=== PATIENT | female | born 1965 | race Caucasian/White ===

== ENCOUNTER 2017-03-01 11:44 | Day surgery (SDC) | payer BC ==
[~2017-03-01] VITALS: Ht 165.1 cm; Wt 105.2 kg
[~2017-03-01 11:44] MED LIST: AMBIEN5 MG PO; AMLODIPINE5 MG PO; HYDROCHLOROT12.5 MG PO; LEVOTHYROXIN75 MCG PO; METFORMIN500 MG PO; METHOCARBAMOL500 MG PO; MOTRIN800 MG PO; PAXIL30 MG PO; TRAZODONE50 MG PO; XANAX0.5 MG PO
[2017-03-01 15:16] VITALS: BP 111/53
== END 2017-03-01 15:10 | disposition home or self-care (01) | DRG 392 ==
LOC: ENDO 11:44
PROVIDERS: ATTEND Internal Medicine Gastroenterology
PROC: 0DJD8ZZ Inspection of Lower Intestinal Tract, Via Natural or Artificial Opening Endoscopic (ICD-10-PCS; principal; 2017-03-01)
DX: K59.00 Constipation, unspecified (principal); E03.9 Hypothyroidism, unspecified; K57.30 Diverticulosis of large intestine without perforation or abscess without bleeding; K64.4 Residual hemorrhoidal skin tags; K64.8 Other hemorrhoids; K21.9 Gastro-esophageal reflux disease without esophagitis; E11.9 Type 2 diabetes mellitus without complications; I10 Essential (primary) hypertension; Z87.891 Personal history of nicotine dependence

== ENCOUNTER 2018-02-24 11:51 | Observation (INO) | payer BC ==
[~2018-02-24] VITALS: Ht 165.1 cm; Wt 105.0 kg
[2018-02-24 13:35] LABS: HEMATOCRIT 35.8 % (37.0-47.0); HEMOGLOBIN 11.2 g/dl (12.0-16.0); IMMATURE GRANULOCYTES 0.4 % (0.0-5.0); MEAN CELL VOLUME 83.3 fL CALC (80.0-100.0); MEAN CORPUSCULAR HGB CONC 31.3 g/L CALC (32.0-36.0); NEUT# 8.18 thou/uL (2.00-7.15); RED BLOOD COUNT 4.3 mill/uL (4.20-5.60); RED CELL DISTRI WIDTH 13.5 % (11.5-15.5)
[2018-02-24 13:49] LABS: ANION GAP 11 (6-22 (CALC)); BUN 9 mg/dL (7-17); BUN/CREATININE RATIO 12 (12-20 (CALC)); CARBON DIOXIDE 25 mmol/l (22-30); CHLORIDE 107 mmol/l (95-108); CREATININE 0.8 mg/dL (0.5-1.0); GFR > 60 ML/MIN (>=60 (CALC)); GFR FOR AFR.AMER. > 60 ML/MIN (>=60 (CALC)); POTASSIUM 3.4 mmol/l (3.5-5.1); SODIUM 140 mmol/l (137-146)
[2018-02-24 16:18] VITALS: BP 150/69
[2018-02-24 17:51] LABS: CHOLESTEROL HDL RATIO 4.2 (<4.4 (CALC))
[2018-02-24 20:00] VITALS: BP 129/77
[2018-02-24 23:14] LABS: URINE BILIRUBIN - DIPSTICK NEGATIVE (NEGATIVE); URINE BLOOD DIPSTICK NEGATIVE (NEGATIVE); URINE COLOR YELLOW; URINE GLUCOSE - DIPSTICK NEGATIVE (NEGATIVE); URINE KETONE NEGATIVE (NEGATIVE); URINE LEUK ESTERASE NEGATIVE (Negative); URINE NITRITE - DIPSTICK NEGATIVE (Negative); URINE PH 7.5 (4.5-8.0); URINE PROTEIN - DIPSTICK NEGATIVE (NEG-TRACE); URINE UROBILINOGEN - DIPSTICK 0.2 E.U./dL (0.2)
[2018-02-24 23:16] LABS: URINE CLARITY SL CLOUDY
[2018-02-25] VITALS: BP 110/73
[2018-02-25 05:45] VITALS: BP 91/59
[2018-02-25 06:10] LABS: ALBUMIN 3.8 g/dL (3.2-5.0); ALKALINE PHOSPHATASE 79 u/l (38-126); BILIRUBIN, TOTAL 0.5 mg/dL (0.0-1.4); BUN 13 mg/dL (7-17); BUN/CREATININE RATIO 14 (12-20 (CALC)); CARBON DIOXIDE 28 mmol/l (22-30); CHLORIDE 109 mmol/l (95-108); CREATININE 0.9 mg/dL (0.5-1.0); GFR > 60 ML/MIN (>=60 (CALC)); GFR FOR AFR.AMER. > 60 ML/MIN (>=60 (CALC)); HEMATOCRIT 36.7 % (37.0-47.0); HEMOGLOBIN 11.5 g/dl (12.0-16.0); IMMATURE GRANULOCYTES 0.9 % (0.0-5.0); MAGNESIUM 1.9 mg/dL (1.6-2.3); MEAN CORPUSCULAR HGB 26.3 pG CALC (26.0-32.0); MEAN CORPUSCULAR HGB CONC 31.3 g/L CALC (32.0-36.0); NEUT# 6.1 thou/uL (2.00-7.15); RED BLOOD COUNT 4.37 mill/uL (4.20-5.60); RED CELL DISTRI WIDTH 13.6 % (11.5-15.5); SGOT/AST 23 u/l (14-36); SODIUM 144 mmol/l (137-146); TOTAL PROTEIN 7.1 g/dL (6.3-8.2)
[2018-02-25 06:12] LABS: ANION GAP 12 (6-22 (CALC))
[2018-02-25 06:13] LABS: POTASSIUM 4.5 mmol/l (3.5-5.1)
[2018-02-25 08:19] VITALS: BP 116/58
[2018-02-25 11:00] VITALS: BP 126/68
== END 2018-02-25 14:43 | disposition home or self-care (01) | DRG 313 ==
LOC: ED 11:51 → ED-I 14:43 → ED 15:11 → MS2 15:12
PROVIDERS: Family Medicine; Nurse Practitioner Family; ADMIT Internal Medicine Nephrology; ATTEND Internal Medicine Nephrology
DX: R07.89 Other chest pain (principal); I10 Essential (primary) hypertension; E11.9 Type 2 diabetes mellitus without complications; F41.1 Generalized anxiety disorder; F32.9 Major depressive disorder, single episode, unspecified; E78.5 Hyperlipidemia, unspecified; G47.33 Obstructive sleep apnea (adult) (pediatric); E03.9 Hypothyroidism, unspecified; D64.9 Anemia, unspecified; Z87.891 Personal history of nicotine dependence; Z91.19 Patient's noncompliance with other medical treatment and regimen; Z79.84 Long term (current) use of oral hypoglycemic drugs
CPT/HCPCS: G0378; Q9967

== ENCOUNTER 2018-05-29 17:29 | Emergency (ER) | payer BC ==
[~2018-05-29] VITALS: Ht 165.1 cm; Wt 110.0 kg
[2018-05-29 18:30] LABS: HEMATOCRIT 36.1 % (37.0-47.0); HEMOGLOBIN 11.3 g/dl (12.0-16.0); IMMATURE GRANULOCYTES 0.3 % (0.0-5.0); MEAN CORPUSCULAR HGB CONC 31.3 g/L CALC (32.0-36.0); NEUT# 12.74 thou/uL (2.00-7.15); RED BLOOD COUNT 4.35 mill/uL (4.20-5.60); RED CELL DISTRI WIDTH 14.5 % (11.5-15.5)
[2018-05-29 18:45] LABS: ALKALINE PHOSPHATASE 80 u/l (38-126); ANION GAP 16 (6-22 (CALC)); BILIRUBIN, TOTAL 0.6 mg/dL (0.0-1.4); BUN 14 mg/dL (7-17); BUN/CREATININE RATIO 18 (12-20 (CALC)); CARBON DIOXIDE 26 mmol/l (22-30); CHLORIDE 101 mmol/l (95-108); CREATININE 0.8 mg/dL (0.5-1.0); GFR > 60 ML/MIN (>=60 (CALC)); GFR FOR AFR.AMER. > 60 ML/MIN (>=60 (CALC)); MAGNESIUM 1.8 mg/dL (1.6-2.3); POTASSIUM 3.8 mmol/l (3.5-5.1); SGOT/AST 25 u/l (14-36); SODIUM 139 mmol/l (137-146); TOTAL PROTEIN 8.1 g/dL (6.3-8.2)
[2018-05-29 18:46] LABS: ALBUMIN 4.7 g/dL (3.2-5.0)
[2018-05-29 18:51] LABS: ACT PARTIAL THROMBO TIME 26.1 SECONDS (20.0-32.5); D-DIMER 0.53 mg/L (0.19-0.60); PROTHROMBIN TIME 10.3 SECONDS (9.0-12.5)
[2018-05-29 19:15] LABS: TSH, 3RD GENERATION 0.92 uIU/mL (0.47 - 4.68)
[2018-05-29 20:14] LABS: URINE BILIRUBIN - DIPSTICK NEGATIVE (NEGATIVE); URINE BLOOD DIPSTICK NEGATIVE (NEGATIVE); URINE COLOR YELLOW; URINE GLUCOSE - DIPSTICK NEGATIVE (NEGATIVE); URINE KETONE NEGATIVE (NEGATIVE); URINE LEUK ESTERASE NEGATIVE (NEGATIVE); URINE NITRITE - DIPSTICK NEGATIVE (Negative); URINE PROTEIN - DIPSTICK NEGATIVE (NEG-TRACE); URINE UROBILINOGEN - DIPSTICK 0.2 E.U./dL (0.2)
[2018-05-29] MEDS ORDERED: BACTRIM DS1 TAB PO (21:23)
[2018-05-29 21:51] VITALS: BP 124/70
== END 2018-05-29 21:58 | disposition home or self-care (01) | DRG 948 ==
LOC: ED 17:29
PROVIDERS: Family Medicine
DX: R60.0 Localized edema (principal); T46.1X5A Adverse effect of calcium-channel blockers, initial encounter; L03.116 Cellulitis of left lower limb; L03.115 Cellulitis of right lower limb; E11.9 Type 2 diabetes mellitus without complications; I10 Essential (primary) hypertension

== ENCOUNTER 2020-12-10 17:24 | Emergency (ER) | payer BC ==
[~2020-12-10] VITALS: Ht 165.1 cm; Wt 119.1 kg
[~2020-12-10 17:24] MED LIST changes: +BACTRIM DS1 TAB PO
[2020-12-10 18:36] LABS: HEMATOCRIT 39.2 % (37.0-47.0); IMMATURE GRANULOCYTES 0.5 % (0.0-5.0); MEAN CELL VOLUME 84.5 fL CALC (80.0-100.0); MEAN CORPUSCULAR HGB 25.9 pG CALC (26.0-32.0); MEAN CORPUSCULAR HGB CONC 30.6 g/dL CAL (32.0-36.0); NEUT# 6.33 thou/uL (2.00-7.15); RED BLOOD COUNT 4.64 mill/uL (4.20-5.60); RED CELL DISTRI WIDTH 14.3 % (11.5-15.5)
[2020-12-10 18:47] LABS: ALBUMIN 3.8 g/dL (3.2-5.0); ALKALINE PHOSPHATASE 97 u/l (38-126); BUN 9 mg/dL (7-17); BUN/CREATININE RATIO 11 (12-20 (CALC)); CHLORIDE 102 mmol/l (95-108); CREATININE 0.8 mg/dL (0.5-1.0); GFR > 60 ML/MIN (>=60 (CALC)); GFR FOR AFR.AMER. > 60 ML/MIN (>=60 (CALC)); POTASSIUM 3.9 mmol/l (3.5-5.1); SODIUM 140 mmol/l (137-146); TOTAL PROTEIN 7.5 g/dL (6.3-8.2)
[2020-12-10 18:49] LABS: ANION GAP 10 (6-22 (CALC)); BILIRUBIN, TOTAL 0.3 mg/dL (0.0-1.4); CARBON DIOXIDE 32 mmol/l (22-30); SGOT/AST 54 u/l (14-36)
[2020-12-10] MEDS ORDERED: AZITHROMYCIN500 MG PO (19:17)
[2020-12-10] MEDS ORDERED: DECADRON6 MG PO (19:17)
[2020-12-10 19:30] VITALS: BP 151/70
== END 2020-12-10 19:56 | disposition home or self-care (01) | DRG 177 ==
LOC: ED 17:24
DX: U07.1 COVID-19 (principal); J12.82 Pneumonia due to coronavirus disease 2019; I10 Essential (primary) hypertension

== ENCOUNTER → 2022-03-09 | Emergency (ER) | payer SELFPAY ==
[~2022-03-09] VITALS: Ht 165.1 cm; Wt 131.0 kg
[2022-03-09] VITALS (9 sets, daily range): BP systolic 120–144; BP diastolic 72–83
[~2022-03-09] MED LIST changes: +AZITHROMYCIN500 MG PO; +DECADRON6 MG PO; +DEXAMETHASON6 MG PO; +METOPROL TAR25 MG PO; +PAXLOVID PO; +PROAIR HFA IN; +ZPAK PO
== END | disposition home or self-care (01) | DRG 179 ==
LOC: ED 13:57
DX: U07.1 COVID-19 (principal); I10 Essential (primary) hypertension; E03.9 Hypothyroidism, unspecified